=== PATIENT | male | born 1955 | race Caucasian/White ===

== ENCOUNTER 2017-07-10 08:24 | Outpatient (CLI) | payer OTHER ==
--- NOTE | 2017-07-10 10:00 | MRI ---
MRI CERVICAL SPINE: HISTORY: A 62-year-old male with a history of spinal stenosis, M48.02. FINDINGS: Multiplanar, multisequence noncontrast-enhanced MRI images cervical spine obtained. The cervical cord is unremarkable with no evidence of masses or lesions. C1-2, C2-3: Unremarkable. C3-4: There is a broad-based disk bulge minimally but not significantly compressing the thecal sac. The central canal and neural foramen are patent. C4-5: There is a mild broad-based disk bulge minimally but not significantly compressing the thecal sac. The neural foramen are patent. C5-6: There is disk space height loss with broad-based disk-osteophyte complex centrally compressing the thecal sac. The osteophyte is extending to the left C5-6 lateral recess. There is also moderat e bilateral C5-6 neural foraminal narrowing due to uncovertebral osteophyte hypertrophy. C6-7: There is disk space height loss with disk desiccation. There is a broad-based disk-osteophyte complex centrally compressing the thecal sac resulting in mild but not significant degree of central stenosis. There is moderate to severe left and moderate right C5-7 neural foraminal narrowing due t o uncovertebral osteophyte hypertrophy. C7-T1: Unremarkable. IMPRESSION: Disk desiccation with a broad-based disk-osteophyte complex centrally at C5-6 and C6-7 with bilateral neural foraminal narrowing as described above. POS: [id number]
== END 2017-07-10 08:25 | disposition home or self-care (01) ==
LOC: TBSIIMAG 08:24
PROVIDERS: ATTEND Surgery
DX: M48.02 Spinal stenosis, cervical region (principal); M50.322 Other cervical disc degeneration at C5-C6 level; M50.323 Other cervical disc degeneration at C6-C7 level; M99.81 Other biomechanical lesions of cervical region
CPT/HCPCS: 72141

== ENCOUNTER 2021-01-21 14:03 | Outpatient (CLI) | payer MEDICARE | END 2021-01-21 14:04 | disposition home or self-care (01) | LOC: BICCT 14:03 | PROVIDERS: ATTEND Nurse Practitioner Family | DX: Z12.2 Encounter for screening for malignant neoplasm of respiratory organs (principal); Z12.11 Encounter for screening for malignant neoplasm of colon; Z72.0 Tobacco use; J98.4 Other disorders of lung; J84.9 Interstitial pulmonary disease, unspecified | CPT/HCPCS: 71271 ==

== ENCOUNTER 2021-02-10 10:23 | Outpatient (CLI) | payer MEDICARE | END 2021-02-10 10:24 | disposition home or self-care (01) | LOC: BICMRI 10:23 | PROVIDERS: ATTEND Nurse Practitioner Acute Care | DX: R41.3 Other amnesia (principal) | CPT/HCPCS: 70210; 70553; 82565 ==

== ENCOUNTER 2023-04-10 10:34 | Outpatient (CLI) | payer OTHER ==
[2023-04-10] MEDS ORDERED: E-Z-HD 98% W/W 340GM BOT (x-ray ONLY) ONE (11:08)
== END 2023-04-10 10:35 | disposition home or self-care (01) ==
LOC: RAD 10:34
PROVIDERS: ATTEND Otolaryngology
DX: R13.10 Dysphagia, unspecified (principal); R09.A2 Foreign body sensation, throat
CPT/HCPCS: 74230